=== PATIENT | female | born 1980 | race Two or more races ===

== ENCOUNTER → 2016-07-25 | Outpatient (CLI) | payer OTHER | LOC: FLACT 14:33 | PROVIDERS: ATTEND Obstetrics & Gynecology | DX: O92.29 Other disorders of breast associated with pregnancy and the puerperium (principal) | CPT/HCPCS: G0463 ==

== ENCOUNTER → 2016-08-10 | Outpatient (CLI) | payer OTHER | LOC: FLACT 13:33 | PROVIDERS: ATTEND Obstetrics & Gynecology | DX: O92.79 Other disorders of lactation (principal); O92.13 Cracked nipple associated with lactation | CPT/HCPCS: G0463 ==